=== PATIENT | male | born 1940 | race Caucasian/White ===

== ENCOUNTER → 2023-10-19 08:25 | Outpatient (REF) | payer OTHER, SELFPAY | LOC: HWRCS 08:25 | PROVIDERS: ATTENDING PHYSICIAN Internal Medicine Cardiovascular Disease; FAMILY PHYSICIAN Internal Medicine | DX: R07.89 Other chest pain (principal); I10 Essential (primary) hypertension; I25.10 Atherosclerotic heart disease of native coronary artery without angina pectoris | CPT/HCPCS: 93306 ==

== ENCOUNTER → 2024-08-14 12:49 | Outpatient (REF) | payer OTHER, SELFPAY | LOC: HWRAD 12:49 | PROVIDERS: ATTENDING PHYSICIAN Internal Medicine Cardiovascular Disease; FAMILY PHYSICIAN Internal Medicine | DX: R07.89 Other chest pain (principal); R09.89 Other specified symptoms and signs involving the circulatory and respiratory systems | CPT/HCPCS: 93880 ==

== ENCOUNTER 2024-09-16 10:35 | Emergency (ER) | payer OTHER, SELFPAY ==
[2024-09-16 10:38] VITALS: BP 156/81
--- NOTE | 2024-09-16 11:50 | ED.GENMED ---
History of Present Illness
General
Chief Complaint: Fatigue
Source: patient and family
Exam Limitations: none
Time Seen by Provider: 09/16/24 11:20
History of Present Illness
History of Present Illness:
84yoM with a history of coronary artery disease, hypertension, and hyperlipidemia presenting with his daughter for evaluation of fatigue. Symptoms began about a week ago with chills, body aches, and back pain. He states he had so much body pain
that his hair hurt. He then developed some diarrhea. He has been nauseous and not eating much. Daughter can tell that he has lost weight. [facility] in [facility] when his symptoms began. He has been to urgent care
twice within the past week. Blood work was obtained but he has not received the results yet. His back pain and diarrhea are improving. He denies any known tick bites, fevers, rashes, URI symptoms, joint swelling, chest pain, shortness of breath.
Past History
Past History
ED Past Medical History: CAD, Cancer (prostate), CVA (TIA), HTN, Hypercholesterolemia, Valvular disease (mild ) and Other (hiatal hernia, arthritis, Prostate Radiation)
ED Past Surgical History: Cardiac (Stent) and Other (CATH-ANGIOPLASTY 1997 AT [facility]; PROSTATE RADIATION-2009; CATH-UNSUCCESFUL RCA- 01/22/16)
Social History
Tobacco: Former smoker
Alcohol: None
Personal:
Living: with family
Phy Exam
General Physical Exam
General Presentation: well appearing and no apparent distress
General age: appears stated age
General Skin: warm and dry
General Habitus: normal
General Mental: alert
ENT Exam
ENT Exam: TM's normal, pharynx normal, neck supple and normocephalic
Cardiovascular Exam
Cardiovascular Exam: regular rate/rhythm
Pulmonary Exam
Pulmonary Exam: lungs clear, no respiratory distress, no rales, no crackles, no rhonchi and no wheezing
Gastrointestinal Exam
Gastrointestinal Exam: soft, non distended and other (+Epigastric tenderness)
Neurological Exam
Neurological Exam: alert
[place] Coma Scale
Eye Opening: Spontaneous
Verbal Response: Oriented
Motor Response: Obeys Commands
GCS Total Score: 15
Skin Exam
Skin Exam: normal color and warm/dry
Psychiatric Exam
Psychiatric Exam: normal mood/affect
Course
Orders/Labs/Results
Orders:
Orders
09/16/24 11:46
CT Abd/pelvis W Iv Cont Urgent
Comment:
Reason For Exam: upper abd pain, nausea
0.9% Sodium Chloride 1000 ml [Nss] 1,000 ml IV BOLUS
CR Chest - 2 Views Urgent
Comment:
Reason For Exam: chills
09/16/24 11:50
COVID-19 Antigen Urgent
Source: Nasal Swab
Complete Blood Count/With Diff Urgent
Comprehensive Metabolic Panel Urgent
Lactate Level [Lactic Acid] Urgent
Lipase Urgent
Lyme Progressive Urgent
Urinalysis Reflex To Culture Urgent
Date Specimen was Collected: 09/16/24
Time Specimen was Collected: 11:47
Urine Microscopic Reflex Cult Urgent
Blood Culture Q30M
DARIO Source: Blood/Venous
Specimen Description:
Blood Parasites Urgent
DARIO Source: Blood/Venous
Specimen Description:
Influenza A+B Rapid Molecular Urgent
DARIO Source: Nasal Swab
Specimen Description:
09/16/24 12:00
Blood Culture Q30M
DARIO Source: Blood/Venous
Specimen Description:
Abnormal Lab Results
09/16/24
11:50
WBC 3.9 L 10^3/uL
(4.8-10.8)
Abs Immat Gran (auto) 0.1 H 10^3/uL
(0-0.05)
Absolute Lymphs (auto) 1.0 L 10^3/uL
(1.2-3.4)
Immature Gran % 1.5 H %
(0-0.5)
Sodium 131 L mmol/L
(135-145)
Total Protein 6.1 L g/dl
(6.3-8.2)
Urine Albumin (Reflex) 2+ A
(Neg - Trace)
09/16/24 11:50
09/16/24 11:50
Vital Signs
Initial and Last Documented VS:
Initial Vital Signs
Temp Pulse Resp BP Pulse Ox
98.0 F 70 16 156/81 98
09/16/24 10:38 09/16/24 10:38 09/16/24 10:38 09/16/24 10:38 09/16/24 10:38
Last Documented Vital Signs
Temp Pulse Resp BP Pulse Ox
98.0 F 66 12 156/81 95
09/16/24 10:38 09/16/24 15:15 09/16/24 15:15 09/16/24 10:38 09/16/24 15:15
MDM/Problems Addressed
Differential Diagnosis Includes:
84yoM here with fatigue and body aches x 1 week. Also c/o decreased appetite. Had diarrhea and back pain initially which are improving. No fevers. Was camping when symptoms began. VSS. There is epigastric tenderness on exam. Exam otherwise
reassuring. Differential diagnosis includes but is not limited to: viral illness, tick borne illness, intra-abdominal infection, pneumonia, malignancy, dehydration
Initial ED plan: Check septic workup including blood cultures, blood parasite smear, Lyme testing, UA, CXR, and CT abdomen. IV fluid bolus.
*Critical Care Note
Total Time (30-74mins, 75-104mins- exclusive of procedures): Not Applicable
Update Note
Update Note:
Mild leukopenia noted with WBC 3.9. Sodium 131. Remainder of labs unremarkable including normal platelets, LFTs, lactate, lipase. No signs of infection on urinalysis. Blood parasite smear negative. COVID/flu negative. CXR appears clear. CT abdomen
negative for acute findings. Unclear etiology of symptoms, possible viral vs. tick borne illness. Did offer to start doxycycline empirically but patient prefers to wait for Lyme test results. Advised close f/u with PCP and ED return precautions
reviewed. Patient discharged in stable condition.
ED Attending Note
-
Portions of this chart may have been created with voice recognition software.� Occasional wrong word or��sound alike� substitutions may have occurred due to the inherent limitations of voice recognition software.
Discharge Plan
Departure
Patient Disposition: Home (Routine Discharge)
Date of Disposition: 09/16/24
Time of Disposition: 16:34
Patient with high blood pressure during this ER visit?: Yes
Discharge Problem:
Malaise, Myalgia
Instructions: Fatigue (DC)
Prescriptions:
No Action
tamsulosin 0.4 MG capsule
0.4 mg PO DAILY
aspirin 81 MG tablet,chewable
81 mg PO DAILY
metoprolol succinate 25 MG tablet extended release 24 hr
12.5 mg PO DAILY
Patient Comments:
ER
isosorbide mononitrate 30 MG tablet extended release 24 hr
30 mg PO DAILY Qty: 30 3RF
lisinopril 10 MG tablet
5 mg PO DAILY
ezetimibe 10 MG tablet
10 mg PO DAILY
Praluent Pen 150 MG/ML pen injector
150 mg SQ .[id number]
omega 5-edg-ihm-fish oil [Fish Oil] 1,000 mg (120 mg-180 mg) Capsule
1 cap PO DAILY
vitamin F39-edxsu acid 2,500-400 mcg Tablet,Disintegrating
1 tab PO DAILY
glucosamine-chondroitin 250-200 mg Tablet
1 tab PO DAILY
tramadol 50 mg tablet
50 mg PO Q6HPRN PRN (Reason: severe pain/breakthrough pain) Qty: 10 0RF
Referrals:
Julee Gong MD [Family Provider, Internal Medicine]
Activity Restrictions/Additional Instructions:
Drink plenty of fluids and stay hydrated.
Please follow-up with your family doctor next week. Return to the ER immediately with any new or worsening symptoms.
Interventions
Interventions:
*Risk Screen - Suicide Last Done: 09/16/24 10:38
*Neglect/Abuse Screening Last Done: 09/16/24 10:38
*Nursing Disposition Last Done: 09/16/24 16:45
Discharge Date and Time
Discharge Date/Time: 09/16/24 16:45
Print Language: VIETNAMESE
[2024-09-16 12:01] VITALS: BMI 22.0
[2024-09-16 12:12] LABS: Urine Albumin 2+ (Neg - Trace); Urine Bilirubin Negative (Negative); Urine Character Clear (Clear); Urine Color Yellow; Urine Glucose Negative (Negative); Urine Ketone Negative (Negative); Urine Leukocyte Negative (Negative); Urine Nitrite Negative (Negative); Urine Occult Blood Negative (Negative); Urine Specific Gravity 1.015 (<1.030); Urine Urobilinogen Negative (Neg - 1+)
[2024-09-16] MEDS: NSS 1000 IV (12:12)
[2024-09-16 12:22] LABS: ALT (SGPT) 33 U/L (0-50); AST (SGOT) 40 U/L (17-59); Albumin 3.8 g/dl (3.5-5.0); Alkaline Phosphatase 54 U/L (38-126); Blood Urea Nitrogen 13 mg/dl (9-20); Calcium 8.7 mg/dl (8.4-10.2); Carbon Dioxide 24 mmol/L (22-30); Chloride 101 mmol/L (98-107); Estimated Creatinine Clearance 49 ml/min; Glucose 96 mg/dl (70-99); Lipase 58 U/L (23-300); Potassium 4.5 mmol/L (3.5-5.1); Sodium 131 mmol/L (135-145); Total Bilirubin 0.3 mg/dl (0.2-1.3); Total Protein 6.1 g/dl (6.3-8.2); eGFR > 60.00
[2024-09-16 12:23] LABS: % Basophils 0.5 % (0-2); % Eosinophils 5.7 % (0-6); % Immature Granulocytes 1.5 % (0-0.5); % Lymphocytes 26.5 % (20.5-51.1); % Neutrophils 58.8 % (42.2-75.2); Absolute Eosinophils 0.2 10^3/uL (0-0.7); Absolute Immature Granulocytes 0.1 10^3/uL (0-0.05); Absolute Monocytes 0.3 10^3/uL (0.1-0.6); Absolute Neutrophils 2.3 10^3/uL (1.4-6.5); Hematocrit 39.8 % (39.0-52.0); Mean Corp Hgb Conc. 35.2 g/dL (33.0-37.0); Mean Corpuscular Hgb 29.3 pg (27.0-31.0); Mean Corpuscular Volume 83.3 fL (80.0-94.0); Nucleated Red Blood Cells % 0 % (-); Red Blood Cell Count 4.78 10^6/uL (4.70-6.10); Red Cell Dist. Width 12.9 % (11.5-14.5); White Blood Cell Count 3.9 10^3/uL (4.8-10.8)
[2024-09-16 12:27] LABS: COVID-19 Antigen Negative (Negative)
[2024-09-16 12:36] LABS: Mean Platelet Volume 9.3 fL (7.4-10.4); Platelet Count 135 10^3/uL (130-400)
[2024-09-16 13:23] LABS: Urine Squamous Cell 0-2 /LPF (Few)
[2024-09-16 13:24] LABS: Urine Red Blood Cell 0-2 /HPF (0-2)
[2024-09-18 13:11] LABS: Lyme Antibody Screen, EIA Negative (Negative)
== END 2024-09-16 16:45 | disposition home or self-care (01) ==
LOC: EMR 10:35
PROVIDERS: Physician Assistant; EMERGENCY PHYSICIAN Student in an Organized Health Care Education/Training Program; FAMILY PHYSICIAN Internal Medicine
DX: R53.81 Other malaise (principal); M79.10 Myalgia, unspecified site; I25.10 Atherosclerotic heart disease of native coronary artery without angina pectoris; I10 Essential (primary) hypertension; E78.00 Pure hypercholesterolemia, unspecified; N40.0 Benign prostatic hyperplasia without lower urinary tract symptoms; Z86.73 Personal history of transient ischemic attack (TIA), and cerebral infarction without residual deficits; Z87.891 Personal history of nicotine dependence; Z95.5 Presence of coronary angioplasty implant and graft
CPT/HCPCS: 99284; 96360; 71046; 74177; 80053; 81003; 81015; 83605; 83690; 85025; 86618; 87015; 87040; 87207; 87502; 87811; Q9967

== ENCOUNTER 2024-09-18 21:35 | Observation (INO) | payer OTHER, SELFPAY ==
[2024-09-18] VITALS (12 sets, daily range): BP systolic 149–207; BP diastolic 57–80; BMI 22.1; BMI 21.7
[2024-09-18 13:47] LABS: % Basophils 0.5 % (0-2); % Eosinophils 6.6 % (0-6); % Immature Granulocytes 1.6 % (0-0.5); % Lymphocytes 21.7 % (20.5-51.1); % Monocytes 7.7 % (1.7-9.3); % Neutrophils 61.9 % (42.2-75.2); Absolute Eosinophils 0.3 10^3/uL (0-0.7); Absolute Immature Granulocytes 0.1 10^3/uL (0-0.05); Absolute Monocytes 0.3 10^3/uL (0.1-0.6); Absolute Neutrophils 2.7 10^3/uL (1.4-6.5); Hematocrit 35.3 % (39.0-52.0); Hemoglobin 12.3 g/dL (13.0-18.0); Mean Corp Hgb Conc. 34.8 g/dL (33.0-37.0); Mean Corpuscular Hgb 29.9 pg (27.0-31.0); Mean Corpuscular Volume 85.7 fL (80.0-94.0); Mean Platelet Volume 9.5 fL (7.4-10.4); Nucleated Red Blood Cells % 0 % (-); Platelet Count 178 10^3/uL (130-400); Red Blood Cell Count 4.12 10^6/uL (4.70-6.10); Red Cell Dist. Width 12.9 % (11.5-14.5); White Blood Cell Count 4.4 10^3/uL (4.8-10.8)
[2024-09-18 14:01] LABS: ALT (SGPT) 60 U/L (0-50); AST (SGOT) 52 U/L (17-59); Albumin 3.6 g/dl (3.5-5.0); Alkaline Phosphatase 58 U/L (38-126); Blood Urea Nitrogen 12 mg/dl (9-20); Carbon Dioxide 23 mmol/L (22-30); Chloride 102 mmol/L (98-107); Glucose 109 mg/dl (70-99); Potassium 4.6 mmol/L (3.5-5.1); Sodium 131 mmol/L (135-145); Total Bilirubin 0.6 mg/dl (0.2-1.3); Total Protein 5.7 g/dl (6.3-8.2); eGFR > 60.00
[2024-09-18] MEDS: NSS 1000 IV (16:39)
[2024-09-18] MEDS: OMNIPAQUE 50 ML PO (17:00)
--- NOTE | 2024-09-18 17:17 | ED.GENMED ---
History of Present Illness
<Higinio Olivares PA-C - Last Filed: 09/19/24 14:31>
General
Chief Complaint: Abdominal Symptoms
Source: patient
Exam Limitations: none
Time Seen by Provider: 09/18/24 15:51
History of Present Illness
History of Present Illness:
84-year-old male presents for reevaluation. He was here 2 days ago for similar symptoms. He notes extreme fatigue. Today he was so weak he could not walk. He also notes ongoing abdominal pain. About 1 week ago, he developed a back pain
diffusely and developed loose stool. Loose stool has since resolved and notes normal bowel movements over the past several days. The back pain is also resolved. No fever. No rashes or known tick bites. No prior known history of Lyme disease.
History of hypertensi. He had a workup done 2 days ago which included a chest x-ray CT of the abdomen Lyme test blood parasite smear. Lyme test did come back negative.
Past History
<Higinio Olivares PA-C - Last Filed: 09/19/24 14:31>
Past History
ED Past Medical History: CAD, Cancer (prostate), CVA (TIA), HTN, Hypercholesterolemia, Valvular disease (mild ) and Other (hiatal hernia, arthritis, Prostate Radiation)
ED Past Surgical History: Cardiac (Stent) and Other (CATH-ANGIOPLASTY 1997 AT [facility]; PROSTATE RADIATION-2009; CATH-UNSUCCESFUL RCA- 01/22/16)
Social History
Tobacco: Former smoker
Alcohol: None
Personal:
Living: with family
Phy Exam
<Higinio Olivares PA-C - Last Filed: 09/19/24 14:31>
Physical Exam
Physical Exam:
General: Well-appearing male no acute respiratory distress
HEENT normocephalic atraumatic
Heart: Regular rate and rhythm
Lungs: Clear no wheeze
Abdomen is soft but tender to the mid abdomen with mild guarding
Extremities: No cyanosis
Skin is warm without rash
Course
<Higinio Olivares PA-C - Last Filed: 09/19/24 14:31>
Orders/Labs/Results
Orders:
Orders
09/18/24 13:21
C-Reactive Protein Urgent
Comment: ADDED
CMP [Comprehensive Metabolic Panel] Urgent
Complete Blood Count/With Diff Urgent
TSH Reflex To Free T4 Urgent
Comment: ADD ON
09/18/24 Dinner
Regular
At Your Request: Limited Participation
Does patient need a safe tray?: No
09/18/24 16:31
0.9% Sodium Chloride 1000 ml [Nss] 1,000 ml IV BOLUS
09/18/24 16:39
CT Abd/pel W Iv And Oral Contr Urgent
Comment:
Reason For Exam: abdominal pain, nausea, weight loss
Iohexol [Omnipaque] See Protocol PO NOW STA
09/18/24 17:16
Add On- LAB Urgent
Tests Added?: tsh reflex to free t4
09/18/24 18:15
Urinalysis Reflex To Culture Urgent
Date Specimen was Collected: 09/18/24
Time Specimen was Collected: 16:54
09/18/24 20:26
Ketorolac [Toradol] 15 mg IV NOW STA
09/18/24 21:17
Admit/Transfer Patient As Directed
Co-Sign Provider:
Level of Care: Observation services
Assign to:: Medical/Surgical
Physician / Group: chloe
Diagnosis: abdominal pain
PRN Pain Medication Management As Directed
May give lesser potent ordered pain med per pt: Yes
preference::
Protocol:: Medication orders for pain may be administered in a
manner that supports deferring to patient preference
when the pt is:
- Requesting an ordered lesser potent pain medication.
Least to most potent pain medications are defined
as: acetaminophen < NSAID < tramadol < opioids
(morphine, oxycodone, hydromorphone).
- Requesting a lesser dose of the same medication IF
ORDERED.
- Requesting a less intrusive route of administration
if both routes are prescribed by the provider (PO <
IV).
09/18/24 21:18
Code Status As Directed
Resuscitation Status: Full Code
09/18/24 22:16
Acetaminophen [Tylenol] 650 mg PO Q4HPRN PRN
09/18/24 22:16
Activity As Directed
Activity Level: As Tolerated
Vital Signs As Directed
Frequency: Per unit guidelines
DX Deep Vein Thrombosis Video Routine
09/19/24 06:56
Complete Blood Count/With Diff IN AM
Comprehensive Metabolic Panel IN AM
09/19/24 08:00
Heparin 5,000 units SC Q12
CR Chest - 2 Views Urgent
Reason For Exam: hypoxia
Abnormal Lab Results
09/18/24 09/18/24
13:21 18:15
WBC 4.4 L 10^3/uL
(4.8-10.8)
RBC 4.12 L 10^6/uL
(4.70-6.10)
Hgb 12.3 L g/dL
(13.0-18.0)
Hct 35.3 L %
(39.0-52.0)
Abs Immat Gran (auto) 0.1 H 10^3/uL
(0-0.05)
Absolute Lymphs (auto) 1.0 L 10^3/uL
(1.2-3.4)
Immature Gran % 1.6 H %
(0-0.5)
Eosinophils % 6.6 H %
(0-6)
Sodium 131 L mmol/L
(135-145)
Glucose 109 H mg/dl
(70-99)
Calcium 8.0 L mg/dl
(8.4-10.2)
ALT 60 H U/L
(0-50)
Total Protein 5.7 L g/dl
(6.3-8.2)
Urine Ketones 1+ A
(Negative)
09/18/24 13:21
09/18/24 13:21
Vital Signs
Initial and Last Documented VS:
Initial Vital Signs
Temp Pulse Resp BP Pulse Ox
97.9 F 57 18 152/60 98
09/18/24 13:13 09/18/24 13:13 09/18/24 13:13 09/18/24 13:13 09/18/24 13:13
Last Documented Vital Signs
Temp Pulse Resp BP Pulse Ox
97.7 F 65 16 168/65 95
09/19/24 07:10 09/19/24 09:14 09/19/24 07:10 09/19/24 09:14 09/19/24 09:10
<Douglas Schwarz MD - Last Filed: 09/18/24 20:39>
Orders/Labs/Results
Orders:
Orders
09/18/24 13:21
C-Reactive Protein Urgent
Comment: ADDED
CMP [Comprehensive Metabolic Panel] Urgent
Complete Blood Count/With Diff Urgent
TSH Reflex To Free T4 Urgent
Comment: ADD ON
09/18/24 Dinner
Regular
At Your Request: Limited Participation
Does patient need a safe tray?: No
09/18/24 16:31
0.9% Sodium Chloride 1000 ml [Nss] 1,000 ml IV BOLUS
09/18/24 16:39
CT Abd/pel W Iv And Oral Contr Urgent
Comment:
Reason For Exam: abdominal pain, nausea, weight loss
Iohexol [Omnipaque] See Protocol PO NOW STA
09/18/24 17:16
Add On- LAB Urgent
Tests Added?: tsh reflex to free t4
09/18/24 18:15
Urinalysis Reflex To Culture Urgent
Date Specimen was Collected: 09/18/24
Time Specimen was Collected: 16:54
09/18/24 20:26
Ketorolac [Toradol] 15 mg IV NOW STA
09/18/24 21:17
Admit/Transfer Patient As Directed
Co-Sign Provider:
Level of Care: Observation services
Assign to:: Medical/Surgical
Physician / Group: chloe
Diagnosis: abdominal pain
PRN Pain Medication Management As Directed
May give lesser potent ordered pain med per pt: Yes
preference::
Protocol:: Medication orders for pain may be administered in a
manner that supports deferring to patient preference
when the pt is:
- Requesting an ordered lesser potent pain medication.
Least to most potent pain medications are defined
as: acetaminophen < NSAID < tramadol < opioids
(morphine, oxycodone, hydromorphone).
- Requesting a lesser dose of the same medication IF
ORDERED.
- Requesting a less intrusive route of administration
if both routes are prescribed by the provider (PO <
IV).
09/18/24 21:18
Code Status As Directed
Resuscitation Status: Full Code
09/18/24 22:16
Acetaminophen [Tylenol] 650 mg PO Q4HPRN PRN
09/18/24 22:16
Activity As Directed
Activity Level: As Tolerated
Vital Signs As Directed
Frequency: Per unit guidelines
DX Deep Vein Thrombosis Video Routine
09/19/24 06:56
Complete Blood Count/With Diff IN AM
Comprehensive Metabolic Panel IN AM
09/19/24 08:00
Heparin 5,000 units SC Q12
CR Chest - 2 Views Urgent
Reason For Exam: hypoxia
Abnormal Lab Results
09/18/24 09/18/24
13:21 18:15
WBC 4.4 L 10^3/uL
(4.8-10.8)
RBC 4.12 L 10^6/uL
(4.70-6.10)
Hgb 12.3 L g/dL
(13.0-18.0)
Hct 35.3 L %
(39.0-52.0)
Abs Immat Gran (auto) 0.1 H 10^3/uL
(0-0.05)
Absolute Lymphs (auto) 1.0 L 10^3/uL
(1.2-3.4)
Immature Gran % 1.6 H %
(0-0.5)
Eosinophils % 6.6 H %
(0-6)
Sodium 131 L mmol/L
(135-145)
Glucose 109 H mg/dl
(70-99)
Calcium 8.0 L mg/dl
(8.4-10.2)
ALT 60 H U/L
(0-50)
Total Protein 5.7 L g/dl
(6.3-8.2)
Urine Ketones 1+ A
(Negative)
09/18/24 13:21
09/18/24 13:21
Vital Signs
Initial and Last Documented VS:
Initial Vital Signs
Temp Pulse Resp BP Pulse Ox
97.9 F 57 18 152/60 98
09/18/24 13:13 09/18/24 13:13 09/18/24 13:13 09/18/24 13:13 09/18/24 13:13
Last Documented Vital Signs
Temp Pulse Resp BP Pulse Ox
97.7 F 65 16 168/65 95
09/19/24 07:10 09/19/24 09:14 09/19/24 07:10 09/19/24 09:14 09/19/24 09:10
<Higinio Olivares PA-C - Last Filed: 09/19/24 14:31>
MDM/Problems Addressed
Differential Diagnosis Includes:
Patient with profound fatigue weakness abdominal pain nausea decreased appetite no weight loss.
Consider viral illness versus electrolyte abnormality versus colitis. Lyme test from 2 days ago negative. Blood parasite smear from 2 days ago negative. Add thyroid today.
Given tenderness on exam will order CT with IV and oral contrast of the abdomen and pelvis. Fluids ordered.
<Higinio Olivares PA-C - Last Filed: 09/19/24 14:31>
*Critical Care Note
Total Time (30-74mins, 75-104mins- exclusive of procedures): Not Applicable
ED Attending Note
<Higinio Olivares PA-C - Last Filed: 09/19/24 14:31>
-
Portions of this chart may have been created with voice recognition software.� Occasional wrong word or��sound alike� substitutions may have occurred due to the inherent limitations of voice recognition software.
<Douglas Schwarz MD - Last Filed: 09/18/24 20:39>
ED Attending Note
Patient seen and examined by attending physician: Yes
I performed the substantive portion of visit, reviewed & personally made and approve the management plan that is documented in note by myself or SARAN.: Yes
ED Attending Note:
I have seen and evaluated the patient with a [id number] encounter. I have spoken to the [PA] and involved in the medical history, the physical exam, medical decision making.
Evaluation and management service: agree unless noted differently below.
Results interpretation: agree unless noted differently below.
84-year-old man presenting to the emergency department for generalized weakness abdominal pain and nausea that has been ongoing. Per chart review it appears that patient had a broad workup which was negative. He is back as the symptoms have not
improved. He does state that he has periumbilical pain that has been persistent. During my evaluation patient does have tenderness in the suprapubic region. He does appear slightly dry. Blood work was obtained prior to my evaluation which shows
a white count of 4.4 sodium of 131. His urine is positive for ketones. CT scan with possible cystitis otherwise has no acute abnormality. Will add on urine culture. Patient has received Toradol. Given the ongoing symptoms of weakness patient
will need admission for further evaluation. Discussed with hospitalist who excepted patient to their service
Discharge Plan
Departure
Patient Disposition: Admit
Date of Disposition: 09/18/24
Time of Disposition: 20:39
Presentation/result/management discussed w/ accepting MD/DO: Hospitalist
Discharge Problem:
Weakness
Interventions
Interventions:
*Risk Screen - Suicide Last Done: 09/18/24 13:13
*General Assessment Last Done: 09/18/24 15:32
*Neglect/Abuse Screening Last Done: 09/18/24 13:13
*ED- Fall Risk Assessment Last Done: 09/18/24 15:32
*ED COVID-19 Vaccine History Last Done: 09/18/24 15:32
*Nursing Disposition Last Done: 09/18/24 22:24
FP-Ormtjk-Dmysjpvcsh Assessment Last Done: 09/18/24 15:32
Discharge Date and Time
Discharge Date/Time: 09/18/24 22:25
[2024-09-18 18:21] LABS: TSH Reflex To Free T4 1.74 uIU/ml (0.47-4.68)
[2024-09-18 18:27] LABS: Urine Albumin Negative (Neg - Trace); Urine Bilirubin Negative (Negative); Urine Character Clear (Clear); Urine Color Yellow; Urine Glucose Negative (Negative); Urine Ketone 1+ (Negative); Urine Leukocyte Negative (Negative); Urine Nitrite Negative (Negative); Urine Occult Blood Negative (Negative); Urine Urobilinogen Negative (Neg - 1+)
[2024-09-18] MEDS: TORADOL 15 MG IV (20:31)
--- NOTE | 2024-09-18 21:20 | HPS.HSE ---
Addendum entered and electronically signed by Elisha Crocker MD 09/18/24 21:23:
Leukopenia also suggesting tick borne illness.
Original Note:
Family Physician
-
Family Physician: Julee Gong
Chief Complaint
-
fatigue
History of Present Illness
84-year-old male past medical history of CAD,, hyperlipidemia, hypertension, TIA, mild aortic stenosis, prostate cancer, presenting for profound weakness and abdominal pain.
Approximately 10 days ago he was camping and afterwards developed diffuse bilateral back pain across his whole back as well as watery diarrhea that was severe for a few days. He took Tylenol with improvement in back pain. Back pain is completely
resolved. Diarrhea later resolved as well. 2 days after the symptoms he developed abdominal pain that is diffuse. He has decreased p.o. intake and he has lost weight.
The main symptom is profound weakness. He denies any chest pain or shortness of breath. Denies fevers or chills. Denies nausea or vomiting. Denies any rash or tick bites. Denies any sick contacts. Denies travel to another country recently.
2 days ago in the emergency room he had chest x-ray, CT abdomen pelvis, Lyme's testing and parasite smear.
He drinks alcohol occasionally. Denies smoking.
Medical History
Past Medical History
Past Medical History: Reports Other ( CAD,, hyperlipidemia, hypertension, TIA, mild aortic stenosis, prostate cancer)
Past Surgical History: Reports None
Social History
Tobacco: Non-smoker
Alcohol: None
Drug: None
Family History
Family History: Not pertinent
Allergies / Home Medications
Allergies reflects when Allergies were last updated in [employer].
Home Medications with original date entered in [employer]
Allergy/Medication List:
Allergies
Allergy/AdvReac Type Severity Reaction Status Date / Time
ampicillin Allergy Swelling Verified 09/18/24 13:13
Cephalosporins Allergy Pharmacy Verified 09/18/24 13:13
to Review
Penicillins Allergy Swelling Verified 09/18/24 13:13
Dkssgho-RYE-ZdO Reductase Allergy MUSCLE Verified 09/18/24 13:13
Inhibitor (Rxsueny-Svl-Cyj ACHES
Reductase Inhibitor)
Sulfa (Sulfonamide Allergy Rash Verified 09/18/24 13:13
Antibiotics)
Home Medications
aspirin 81 mg chewable tablet 81 mg PO DAILY 01/22/16
metoprolol succinate 25 mg tablet,extended release 24 hr 12.5 mg PO DAILY 01/22/16
tamsulosin 0.4 mg capsule 0.4 mg PO DAILY 01/22/16
isosorbide mononitrate 30 mg tablet,extended release 24 hr 30 mg PO DAILY ##30 01/23/16
alirocumab 150 mg/mL subcutaneous pen injector (Praluent Pen) 150 mg SQ .[id number] 04/29/18
ezetimibe 10 mg tablet 10 mg PO DAILY 04/29/18
lisinopril 10 mg tablet 5 mg PO DAILY 04/29/18
glucosamine-chondroitin 250 mg-200 mg tablet 1 tab PO DAILY 07/23/22
omega 4-tmp-oxl-fish oil 1,000 mg (120 mg-180 mg) capsule (Fish Oil) 1 cap PO DAILY 07/23/22
vitamin B12 2,500 mcg-folic acid 400 mcg disintegrating tablet 1 tab PO DAILY 07/23/22
acetaminophen 325 mg tablet (Tylenol) 650 mg PO Q6HPRN PRN mild pain 09/18/24
hydralazine 10 mg tablet 10 mg PO BID 09/18/24
Review of Systems
-
History Source: Patient
A 12 point ROS was completed and negative except as noted: Yes
Constitutional: Reports No Symptoms
EENT: Reports No Symptoms
Respiratory: Reports No Symptoms
Cardiac: Reports No Symptoms
Abdomen/GI: Reports No Symptoms
: Reports No Symptoms
Musculoskeletal: Reports No Symptoms
Skin: Reports No Symptoms
Neurological: Reports No Symptoms
Endocrine: Reports No Symptoms
Hematologic/Lymphatic: Reports No Symptoms
Psych: Reports No Symptoms
Physical Exam
Vital Signs
Vital Signs
Temp Pulse Resp BP Pulse Ox
98.5 F 57 18 189/65 94
09/18/24 19:17 09/18/24 13:13 09/18/24 13:13 09/18/24 19:11 09/18/24 20:37
Physical Exam
General: Well Developed, Well Nourished and No Apparent Distress
HEENT: NormoCephalic, Moist mucous membranes and Atraumatic
Respiratory: Clear
Cardiac: S1/S2 and Regular Rhythm; No Murmur or Rub
GI: Soft, Non Tender, Non Distended and Normal Bowel Sounds; No Organomegaly
Rectal: Deferred by Provider
Musculoskeletal: No Clubbing, No Cyanosis and No Edema
Skin: No Rash
Neuro: Nonfocal/grossly intact
Laboratory Results
-
09/18/24 13:21
09/18/24 13:21
Laboratory Results
Total Bilirubin 0.6 mg/dl (0.2-1.3) 09/18/24 13:21
AST 52 U/L (17-59) 09/18/24 13:21
ALT 60 U/L (0-50) H 09/18/24 13:21
Alkaline Phosphatase 58 U/L (38-126) 09/18/24 13:21
Data Reviewed
-
Lab Data: Labs Reviewed by me
Old Records: Reviewed
Impression/Plan
-
IMPRESSION:
PLAN:
# Severe fatigue, recent diarrhea and abdominal pain unclear etiology, symptoms suggestive of gastroenteritis associated reactive arthritis versus Lyme's versus tickborne disorder
- Blood parasite smear negative
- Blood culture from 2 days ago negative
- Lyme negative
- CT abdomen pelvis negative apart from some bladder thickening
-Urinalysis unremarkable
- Seems that patient had a viral gastroenteritis, with joint pains, fatigue
- Cannot check stool studies with no diarrhea currently
- No fever or sepsis symptoms to suggest bacterial infection
-check ESR and CRP
-consider ID evaluation
# Hyponatremia secondary to GI losses, poor p.o. intake
- Resume oral diet
# Hypertensive urgency
- Continue hydralazine,
History of CAD
- Continue aspirin, isosorbide
Hyperlipidemia
- Continue Zetia
Essential hypertension
- Continue lisinopril, metoprolol
History of TIA
Mild aortic stenosis
Prostate cancer
- Continue tamsulosin
DNR
DVT prophylaxis�heparin
Regular diet
[2024-09-18] MEDS: APRESOLINE 5 MG IV (21:50)
--- NOTE | 2024-09-18 23:45 | SUR.PHASEI ---
Pt arrived to floor via stretcher from the ED. pt able to ambulate independently into room without difficulty. Pt denies falls, or any use of assistive devices, pt independent at home. Pt reports having abd discomfort, sour feeling, nausea. Denies
any vomiting. Pt reports prior diarrhea resolved. Pt noted to have B/L hearing aids in place. Pt arrived with 2LO2 NC [address]. Upon walking into room on RA, pox assessed 96% on RA. Once pt settled, re assessed, continued on RA 96%. Pt denies any
complaints of SOB at this time. Right AC int capped. No issues to report at this time. Will continue to monitor.
[2024-09-19 07:10] VITALS: BP 168/65
[2024-09-19 07:57] LABS: % Basophils 0.6 % (0-2); % Eosinophils 5.3 % (0-6); % Immature Granulocytes 4.2 % (0-0.5); % Lymphocytes 22.8 % (20.5-51.1); % Monocytes 10.8 % (1.7-9.3); % Neutrophils 56.3 % (42.2-75.2); Absolute Eosinophils 0.3 10^3/uL (0-0.7); Absolute Immature Granulocytes 0.2 10^3/uL (0-0.05); Absolute Lymphocytes 1.1 10^3/uL (1.2-3.4); Absolute Monocytes 0.5 10^3/uL (0.1-0.6); Absolute Neutrophils 2.7 10^3/uL (1.4-6.5); Hematocrit 37.2 % (39.0-52.0); Mean Corp Hgb Conc. 34.9 g/dL (33.0-37.0); Mean Corpuscular Hgb 29.4 pg (27.0-31.0); Mean Corpuscular Volume 84.2 fL (80.0-94.0); Mean Platelet Volume 9.3 fL (7.4-10.4); Nucleated Red Blood Cells % 0 % (-); Platelet Count 190 10^3/uL (130-400); Red Blood Cell Count 4.42 10^6/uL (4.70-6.10); Red Cell Dist. Width 12.7 % (11.5-14.5); White Blood Cell Count 4.7 10^3/uL (4.8-10.8)
--- NOTE | 2024-09-19 08:45 | W.PN.HOSP.TC ---
Today's Communication/Plan
-
Discharge planning today
Assessment / Plan
Assessment / Plan
Physical exam:
General: Well Developed, Well Nourished and No Apparent Distress
HEENT: Normocephalic, Atraumatic and Moist Mucous Membranes
Respiratory: Clear to Auscultation; Negative Wheezes, Rales or Rhonchi
Cardiac: Regular Rhythm and S1/S2
GI: Soft, Nontender and Nondistended
Musculoskeletal: No Clubbing, No Cyanosis and No Edema
Neuro: Awake, Alert and Oriented, no neurodeficit
Psych: Calm
A/P:
# Viral illness
CT of the abdomen unremarkable except for possible cystitis but no symptoms of such
Parasite smear negative
Blood cultures no growth
Influenza negative
COVID-19 negative
Lyme test negative
Chest x-ray no acute chest pathology
UA unremarkable
Start Pepcid and antiemetics as needed
Tolerating diet
Plan to discharge today
# Hyponatremia secondary to GI losses, poor p.o. intake
- Resume oral diet
- Monitor sodium as outpatient
# Hypertensive urgency
- Continue hydralazine, Imdur, metoprolol, and lisinopril
History of CAD
- Continue aspirin, isosorbide
Hyperlipidemia
- Continue Zetia
Essential hypertension
- Continue lisinopril, metoprolol
History of TIA
Mild aortic stenosis
Prostate cancer
- Continue tamsulosin
DNR
DVT prophylaxis�heparin
Anticipated Discharge: Today
Subjective/Interval History
-
Date of Service: September 19, 2024
Patient feels better. No abdominal pain nausea vomiting or diarrhea. Afebrile
Objective Data
-
Labs:
Laboratory Results
09/19/24
06:56
WBC 4.7 L
Hgb 13.0
Hct 37.2 L
Plt Count 190
Sodium Pending
Potassium Pending
Chloride Pending
Carbon Dioxide Pending
BUN Pending
Creatinine Pending
Glucose Pending
Calcium Pending
Total Bilirubin Pending
AST Pending
ALT Pending
Alkaline Phosphatase Pending
Vital Signs:
Vital Signs
Temp Pulse Resp BP Pulse Ox
97.4 F 73 18 149/64 97
09/18/24 23:18 09/18/24 23:18 09/18/24 23:18 09/18/24 23:18 09/18/24 23:42
I&O
09/18/24 09/19/24 09/20/24
06:59 06:59 06:59
Intake Total 480 / 480
Balance 480 / 480
[2024-09-19 08:48] LABS: ALT (SGPT) 48 U/L (0-50); AST (SGOT) 43 U/L (17-59); Albumin 3.3 g/dl (3.5-5.0); Alkaline Phosphatase 62 U/L (38-126); Blood Urea Nitrogen 9 mg/dl (9-20); Calcium 7.6 mg/dl (8.4-10.2); Carbon Dioxide 20 mmol/L (22-30); Chloride 102 mmol/L (98-107); Estimated Creatinine Clearance 61 ml/min; Glucose 91 mg/dl (70-99); Potassium 4.4 mmol/L (3.5-5.1); Sodium 128 mmol/L (135-145); Total Bilirubin 0.6 mg/dl (0.2-1.3); Total Protein 5.5 g/dl (6.3-8.2); eGFR > 60.00
[2024-09-19] MEDS: APRESOLINE 10 MG PO (09:13)
[2024-09-19] MEDS: ZESTRIL 20 MG PO (09:14)
[2024-09-19] MEDS: FLOMAX 0.4 MG PO (09:14)
[2024-09-19] MEDS: TOPROL XL 12.5 MG PO (09:14)
[2024-09-19] MEDS: HEPARIN 5000 UNITS SC (09:15)
[2024-09-19] MEDS: FLUSH (NSS) 1 FLUSH IV (09:15)
[2024-09-19] MEDS: LOW STRENGTH ASPIRIN 81 MG PO (09:15)
--- NOTE | 2024-09-19 10:20 | W.DCSUMMARY ---
Discharge Summary
Discharge Data
Date of Admission: 09/18/24
Date of Discharge: 09/19/24
-
Pending Results: No
Hospital Course
Patient 84-year-old male with multiple comorbidities including hypertension, hyperlipidemia, TIA, aortic stenosis, prostate cancer, CAD, presented to the hospital with generalized weakness, fevers, abdominal discomfort nausea and diarrhea. Blood
pressure elevated upon admission but asymptomatic and he has been improving. Patient was kept in observation in the hospital. His vital signs have remained stable and afebrile; his labs unremarkable; peripheral smear negative for parasites; CT
abdomen pelvis negative for acute pathology but describes some cystitis but no urinary symptoms and urinalysis unremarkable; chest x-ray no acute chest pathology; blood cultures no growth. In essence, his symptomatology points towards a viral
etiology. Recommended conservative treatment and since he feels back close to his baseline he can be discharged in relatively stable condition today.
Discharge Plan
-
Patient Disposition: Home (Routine Discharge)
Discharge Diagnosis/Procedures: Acute gastroenteritis. Leukopenia.
Diet: Regular
Activity: As tolerated
Blood Work: Please PCP to order CBC, BMP within 1 week
Referrals:
Julee Gong MD [Family Provider, Internal Medicine] - in less than 1 week
Prescriptions:
New
famotidine [Pepcid] 20 mg tablet
20 mg PO DAILY Qty: 10 0RF
ondansetron 4 mg Tablet,Disintegrating
4 mg PO Q8HPRN PRN (Reason: nausea or vomiting) Qty: 10 0RF
Continued
tamsulosin 0.4 MG capsule
0.4 mg PO DAILY
aspirin 81 MG tablet,chewable
81 mg PO DAILY
metoprolol succinate 25 MG tablet extended release 24 hr
12.5 mg PO DAILY
ezetimibe 10 MG tablet
10 mg PO QPM
Praluent Pen 150 MG/ML pen injector
150 mg SQ Q2W
omega [id number]-fish oil [Fish Oil] 1,000 mg (120 mg-180 mg) Capsule
1 cap PO DAILY
glucosamine-chondroitin 250-200 mg Tablet
1 tab PO DAILY
hydralazine 10 mg Tablet
10 mg PO BID
acetaminophen [Tylenol] 325 mg Tablet
650 mg PO Q6HPRN PRN (Reason: mild pain)
lisinopril 20 mg Tablet
20 mg PO DAILY
isosorbide mononitrate 30 MG tablet extended release 24 hr
30 mg PO QPM
Discharge Orders:
Discharge Patient (As Directed); Ordered 09/19/24
Ordered By: Daniel Rodriguez
Discharge Date and Time
Discharge Date/Time: 09/19/24 12:43
Print Language: GREEK
--- NOTE | 2024-09-19 11:39 | CM ---
Patient was admitted under OBS, [facility] letter given to patient. laundromat manager reviewed patient's chart and met with patient and patient states that he resides at [facility] independent living, patient is independent with adl's and
ambulation. Patient is part of the [employer], patient drives, home no needs when stable.
PCP: Julee Gong
Pharmacy: [facility] in [place]
Plan; Home today no needs.
== END 2024-09-19 12:43 | disposition home or self-care (01) ==
LOC: 4 EAST ACU 21:35
PROVIDERS: Emergency Medicine; Physician Assistant; ADMITTING PHYSICIAN Hospitalist; ATTENDING PHYSICIAN Hospitalist; EMERGENCY PHYSICIAN Student in an Organized Health Care Education/Training Program; FAMILY PHYSICIAN Internal Medicine
DX: K52.9 Noninfective gastroenteritis and colitis, unspecified (principal); R10.9 Unspecified abdominal pain; M54.9 Dorsalgia, unspecified; E78.00 Pure hypercholesterolemia, unspecified; D72.819 Decreased white blood cell count, unspecified; R63.4 Abnormal weight loss; R53.1 Weakness; E87.1 Hypo-osmolality and hyponatremia; I16.0 Hypertensive urgency; I35.0 Nonrheumatic aortic (valve) stenosis; C61 Malignant neoplasm of prostate; I10 Essential (primary) hypertension; I25.10 Atherosclerotic heart disease of native coronary artery without angina pectoris; K44.9 Diaphragmatic hernia without obstruction or gangrene; Z66 Do not resuscitate; Z87.891 Personal history of nicotine dependence; Z95.5 Presence of coronary angioplasty implant and graft; Z92.3 Personal history of irradiation; Z86.73 Personal history of transient ischemic attack (TIA), and cerebral infarction without residual deficits; Z88.2 Allergy status to sulfonamides; Z88.8 Allergy status to other drugs, medicaments and biological substances; Z88.0 Allergy status to penicillin; Z88.1 Allergy status to other antibiotic agents; Z79.899 Other long term (current) drug therapy; Z79.82 Long term (current) use of aspirin; Z60.2 Problems related to living alone
CPT/HCPCS: 71046; 74177; 80053; 81003; 84443; 85025; 86140; 96361; 96374; 99285; G0378; Q9967

== ENCOUNTER → 2024-12-12 10:12 | Outpatient (REF) | payer OTHER, SELFPAY | LOC: HWRCS 10:12 | PROVIDERS: ATTENDING PHYSICIAN Internal Medicine Cardiovascular Disease; FAMILY PHYSICIAN Internal Medicine | DX: R07.89 Other chest pain (principal); I35.0 Nonrheumatic aortic (valve) stenosis | CPT/HCPCS: 93306 ==